=== PATIENT | male | born 1980 | race Caucasian/White ===

== ENCOUNTER 2023-04-16 06:32 | Day surgery (SDC) | payer BC, SELFPAY ==
[2023-04-16] VITALS (9 sets, daily range): BP systolic 118–126; BP diastolic 64–79; BMI 30.4
[2023-04-16] MEDS: CELEBREX 200 MG PO (09:11)
[2023-04-16] MEDS: TYLENOL 1000 MG PO (09:11)
[2023-04-16] MEDS: NORMOSOL-R 1000 IV (09:13)
== END 2023-04-16 14:17 | disposition home or self-care (01) ==
LOC: SDS 06:32
PROVIDERS: ATTENDING PHYSICIAN Specialist
DX: M71.122 Other infective bursitis, left elbow (principal)
CPT/HCPCS: 24105; 87070; 87075; 87176; 87205